=== PATIENT | male | born 1990 | race Hispanic/Latino ===

== ENCOUNTER 2018-12-08 19:34 | Emergency (ER) | payer SELFPAY ==
[2018-12-08 19:51] VITALS: RESP 18
[2018-12-08 20:19] LABS: BASO # 0.03 K/mm3 (0.0-2.0); BASO % 0.4 % (0.0-3.0); EOS # 0.5 (0.0-0.7); EOS % 5.8 % (1.5-5.0); HEMOGLOBIN 15.1 g/dL (14.0-18.0); LYMPH # 3.1 (1.2-3.4); LYMPH % 35.7 % (22.0-35.0); MEAN CORPUSCULAR HEMOGLOBIN 28.5 pg (25.0-35.0); MEAN CORPUSCULAR HGB CONC 34.3 g/dl (31.0-37.0); MEAN PLATELET VOLUME 9.7 fl (7.0-11.0); MONO # 0.4 (0.1-0.6); MONO % 4.4 % (1.0-6.0); RBC 5.3 10^6/uL (3.5-6.1); RED CELL DISTRIBUTION WIDTH 12.3 % (11.5-14.5); WHITE BLOOD COUNT 8.6 10^3/uL (4.5-11.0)
[2018-12-08 20:31] LABS: INR 1.02; PARTIAL THROMBOPLASTIN TIME 30.4 Seconds (26.9-38.3); PROTHROMBIN TIME 11.3 SECONDS (9.4-12.5)
[2018-12-08] MEDS ORDERED: Morphine 2 mg/ml ISec IVP STA ×2 (20:44→21:26)
[2018-12-08 20:55] VITALS: O2SAT 99
[2018-12-08 21:19] LABS: ALB/GLOB RATIO 1.2 (1.1-1.8); ALBUMIN 4.5 g/dL (3.0-4.8); ALT/SGPT 28 U/L (7-56); AST/SGOT 43 U/L (17-59); BLOOD UREA NITROGEN 13 mg/dL (7-21); GFR NON-AFRICAN AMERICAN > 60
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
[2018-12-09 00:08] VITALS: BP 125/68; PULSE 109; TEMP 98.6
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
--- NOTE | 2018-12-09 09:49 | CARD ---
APPROVED REPORT Date of service: 12/08/2018 EKG Measurement Heart [id number] <Conclusion> Sinus tachycardia Otherwise normal ECG
--- NOTE | 2018-12-09 10:21 | RAD ---
Date of service: 12/08/2018 PROCEDURE: Right Ankle Radiographs. HISTORY: fall COMPARISON: None available. FINDINGS: BONES: There is a displaced obliquely oriented fracture of the distal fibula above the level of the ankle joint. There is dislocation of the ankle joint. There is also a posterior bony fragment most likely from the posterior malleolus. JOINTS: Dislocated ankle SOFT TISSUES: Normal. OTHER FINDINGS: None. IMPRESSION: There is a displaced obliquely oriented fracture of the distal fibula above the level of the ankle joint. There is dislocation of the ankle joint. There is also a posterior bony fragment most likely from the posterior malleolus.
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
--- NOTE | 2018-12-09 11:21 | CT ---
Date of service: 12/08/2018 PROCEDURE: CT of the right ankle HISTORY: Ankle fracture. COMPARISON: Comparison made with radiographs of the right ankle obtained earlier same day TECHNIQUE: Contiguous axial images of the right ankle were obtained. Coronal and sagittal reformats were generated. Radiation dose: Total exam DLP = 403.1 mGy-cm. This CT exam was performed using one or more of the following dose reduction techniques: Automated exposure control, adjustment of the mA and/or kV according to patient size, and/or use of iterative reconstruction technique. FINDINGS: BONES: There is a displaced oblique fracture traversing the distal left fibular shaft with anterior displacement of the distal margin of the larger proximal fibular fragment. In addition, there is a fracture of the a slightly posteriorly displaced fracture of the posterior malleolus. Tiny bony fragments arising from the anterior inferior and lateral aspect of the distal tibia are also seen within the anterior margin of the tibiotalar articulation.. RIGHT HIP JOINT: There is mild medial displacement of the tibia with respect to the talus and associated widening of the anterior and medial margin of the ankle mortise. SOFT TISSUES: There is mild to moderate soft tissue swelling and presumed subcutaneous hemorrhage medial greater than lateral. IMPRESSION: Fractures traversing the distal fibular shaft and posterior malleolus with tiny bony fragments also seen arising from the anterior inferior and lateral margin of the distal tibia. There is also mild medial displacement of the distal tibia with respect to the talus and widening of the anterior and medial aspect of the ankle mortise. Surrounding soft tissue swelling and a small amount of subcutaneous hemorrhage felt present.
== END 2018-12-08 23:18 | disposition left against medical advice (07) ==
LOC: ED 19:34
DX: S82.841A Displaced bimalleolar fracture of right lower leg, initial encounter for closed fracture (principal); Y08.89XA Assault by other specified means, initial encounter; Y92.511 Restaurant or cafe as the place of occurrence of the external cause
CPT/HCPCS: 29515; 70450; 70486; 73590; 73610; 73700; 80053; 85025; 85610; 85730; 93005; 96374; 96376; 99285; G0480; J2270